=== PATIENT | male | born 1955 | race Caucasian/White ===

== ENCOUNTER 2019-02-22 00:07 | Emergency (ER) | payer OTHER ==
[2019-02-22] MEDS ORDERED: Alum Hydroxide/Mag Hydroxide 15 ML, Lidocaine 2% 15 ML PO ONE ×2 (00:41)
[2019-02-22] MEDS ORDERED: Ondansetron 8 MG Tab.DIS PO ONE (00:41)
--- NOTE | 2019-02-22 00:42 | EDM.PDOC ---
ED HPI GENERAL MEDICAL PROBLEM - General Stated Complaint: SICK Time Seen by Provider: 02/22/19 00:07 Source of Information: Reports: Patient, Family History Limitations: Reports: No Limitations - History of Present Illness INITIAL COMMENTS - FREE TEXT/NARRATIVE: 63 y.o.w.m with a H/O HTN and Hypercholesterolemia came to the ED this am due to epigastric pain all day long. He has chronic low back pain as well, no new trauma, however. No SOB, no Chest pain, no F/C no trauma. Pt mondragon a H/O GERD, which resoled after a Ravinder procedure was performed. several years ago. Pt denies Tobacco use, drinks some beer when watching foot ball, however. BP 140/ 75 RR 20 Pulse ox 96% on RA Temp 36.8 Pulse 64 Onset Date: 02/21/19 Onset Time: 08:00 Duration: Hour(s): Location: Reports: Chest Quality: Reports: Dull Severity: Moderate Improves with: Reports: None Worsens with: Reports: None Context: Reports: Other Associated Symptoms: Reports: Other (epigastric pain, chronic back pain ) - Related Data Allergies Allergy/AdvReac Type Severity Reaction Status Date / Time No Known Allergies Allergy Verified 02/22/19 01:58 Home Meds: Home Meds Lisinopril/Hydrochlorothiazide [Lisinopril-Hctz 20-12.5 mg Tab] 1.5 tab PO DAILY 02/22/19 [History] Meloxicam 15 mg PO DAILY 02/22/19 [History] Rosuvastatin [Crestor] 20 mg PO DAILY 02/22/19 [History] Sertraline [Zoloft] 100 mg PO DAILY 02/22/19 [History] amLODIPine [Norvasc] 0.5 tab PO Q48H 02/22/19 [History] amLODIPine [Norvasc] 5 mg PO Q48H 02/22/19 [History] metFORMIN [Glucophage XR] 500 mg PO DAILY 02/22/19 [History] ED ROS GENERAL - Review of Systems Review Of Systems: See Below Constitutional: Reports: No Symptoms HEENT: Reports: No Symptoms Respiratory: Reports: No Symptoms Cardiovascular: Reports: No Symptoms Endocrine: Reports: No Symptoms GI/Abdominal: Reports: Abdominal Pain (epigastric) : Reports: No Symptoms Musculoskeletal: Reports: No Symptoms Skin: Reports: No Symptoms Neurological: Reports: No Symptoms Psychiatric: Reports: No Symptoms Hematologic/Lymphatic: Reports: No Symptoms Immunologic: Reports: No Symptoms ED EXAM, GENERAL - Physical Exam Exam: See Below Exam Limited By: No Limitations General Appearance: Alert, WD/WN, Mild Distress, Obese Eye Exam: Bilateral Eye: Normal Inspection Ears: Normal External Exam Ear Exam: Bilateral Ear: Auricle Normal Nose: Normal Inspection, Normal Mucosa Throat/Mouth: Normal Lips, Normal Voice, No Airway Compromise Head: Atraumatic, Normocephalic Neck: Normal Inspection, Supple, Non-Tender, Full Range of Motion Respiratory/Chest: No Respiratory Distress, Lungs Clear, Normal Breath Sounds, Chest Non-Tender Cardiovascular: Normal Peripheral Pulses, Regular Rate, Rhythm, No Edema, No Gallop, No Murmur, No Rub Peripheral Pulses: 1+: Carotid (R) GI/Abdominal: Tender (epigastric ) (Male) Exam: Deferred Rectal (Males) Exam: Deferred Back Exam: Normal Inspection, Full Range of Motion Extremities: Normal Inspection, Normal Range of Motion Neurological: Alert, Oriented, CN II-XII Intact, Normal Cognition, Normal Gait Psychiatric: Normal Affect, Normal Mood Skin Exam: Warm, Dry, Intact, Normal Color, No Rash Lymphatic: No Adenopathy EKG INTERPRETATION EKG Date: 02/22/19 Time: 00:15 Rhythm: NSR Rate (Beats/Min): 63 [place]: Normal P-Wave: Present QRS: Normal ST-T: Normal QT: Normal Comparison: NA - No Prior EKG Course - Vital Signs Text/Narrative:: 63 y.o.w.m with a H/O HTN and Hypercholesterolemia came to the ED this am due to epigastric pain all day long. He has chronic low back pain as well, no new trauma, however. No SOB, no Chest pain, no F/C no trauma. Pt mondragon a H/O GERD, which resoled after a Ravinder procedure was performed. several years ago. Pt denies Tobacco use, drinks some beer when watching foot ball, however. BP 140/ 75 RR 20 Pulse ox 96% on RA Temp 36.8 Pulse 64 PE: WNWD W M with epigastric pain, no RUQ tenderness Labs: CBC nl, BPM: K was 3.4 BUN 20 Glc 129 Troponin: 0.017 Impression; Hypokalemia, gastritis, chronic back pain Tx: Zofran, GI cocktail Reexam: Pain subsided Plan: D/C with instructions Last Recorded V/S: Last Vital Signs Temp 36.4 C 02/22/19 00:10 Pulse 67 02/22/19 02:00 Resp 18 02/22/19 02:00 BP 117/70 02/22/19 02:00 Pulse Ox 95 02/22/19 02:00 - Orders/Labs/Meds Orders: Active Orders 24 hr Category Date Time Status EKG Documentation Completion [RC] ASDIRECTED Care 02/22/19 00:12 Active EKG 12 Lead [EK] Routine Ther 02/22/19 00:12 Ordered Labs: Laboratory Tests 02/22/19 02/22/19 02/22/19 Range/Units 00:46 00:46 00:46 WBC 7.0 (4.5-12.0) X10-3/uL RBC 4.88 (4.30-5.75) x10(6)uL Hgb 14.5 (13.5-17.8) g/dL Hct 43.3 (30.0-51.3) % MCV 88.6 (80-96) fL MCH 29.7 (27.7-33.6) pg MCHC 33.5 (32.2-35.4) g/dL RDW 12.2 (11.5-15.5) % Plt Count 230 (125-369) X10(3)uL MPV 9.2 (7.4-10.4) fL Neut % (Auto) 53.2 (46-82) % Lymph % (Auto) 32.0 (13-37) % Saline % (Auto) 9.1 (4-12) % Eos % (Auto) 5 (1.0-5.0) % Baso % (Auto) 1 (0-2) % Neut # (Auto) 3.7 (1.6-8.3) # Lymph # (Auto) 2.3 (0.6-5.0) # Saline # (Auto) 0.6 (0.0-1.3) # Eos # (Auto) 0.4 (0.0-0.8) # Baso # (Auto) 0.0 (0.0-0.2) # PT 10.0 (8.7-11.1) INR 1.03 (0.89-1.13) Sodium 139 (135-145) mmol/L Potassium 3.4 L (3.5-5.3) mmol/L Chloride 101 (100-110) mmol/L Carbon Dioxide 28 (21-32) mmol/L BUN 20 H (7-18) mg/dL Creatinine 1.1 (0.70-1.30) mg/dL Est Cr Clr Drug Dosing TNP Estimated GFR (MDRD) > 60 (>60) BUN/Creatinine Ratio 18.2 (9-20) Glucose 129 H (80-116) mg/dL Calcium 9.0 (8.6-10.2) mg/dL Total Bilirubin (0.1-1.3) mg/dL Direct Bilirubin (0.10-0.20) mg/dL AST (5-25) IU/L ALT (12-36) U/L Alkaline Phosphatase (56-112) IU/L Troponin I (<0.017-0.056) ng/mL Total Protein (6.0-8.0) g/dL Albumin (3.2-4.6) g/dL Lipase (73-393) U/L Urine Color (YELLOW) Urine Appearance (CLEAR) Urine pH (5.0-6.5) Ur Specific [place] (1.010-1.025) Urine Protein (NEGATIVE) mg/dL Urine Glucose (UA) (NORMAL) mg/dL Urine Ketones (NEGATIVE) mg/dL Urine Occult Blood (NEGATIVE) Urine Nitrite (NEGATIVE) Urine Bilirubin (NEGATIVE) Urine Urobilinogen (NEGATIVE) mg/dL Ur Leukocyte Esterase (NEGATIVE) Urine RBC (0-5) Urine WBC (0-5) Ur Squamous Epith Cells (NS,R,O) Urine Bacteria (NS) 02/22/19 02/22/19 02/22/19 Range/Units 00:46 00:46 01:50 WBC (4.5-12.0) X10-3/uL RBC (4.30-5.75) x10(6)uL Hgb (13.5-17.8) g/dL Hct (30.0-51.3) % MCV (80-96) fL MCH (27.7-33.6) pg MCHC (32.2-35.4) g/dL RDW (11.5-15.5) % Plt Count (125-369) X10(3)uL MPV (7.4-10.4) fL Neut % (Auto) (46-82) % Lymph % (Auto) (13-37) % Saline % (Auto) (4-12) % Eos % (Auto) (1.0-5.0) % Baso % (Auto) (0-2) % Neut # (Auto) (1.6-8.3) # Lymph # (Auto) (0.6-5.0) # Saline # (Auto) (0.0-1.3) # Eos # (Auto) (0.0-0.8) # Baso # (Auto) (0.0-0.2) # PT (8.7-11.1) INR (0.89-1.13) Sodium (135-145) mmol/L Potassium (3.5-5.3) mmol/L Chloride (100-110) mmol/L Carbon Dioxide (21-32) mmol/L BUN (7-18) mg/dL Creatinine (0.70-1.30) mg/dL Est Cr Clr Drug Dosing Estimated GFR (MDRD) (>60) BUN/Creatinine Ratio (9-20) Glucose (80-116) mg/dL Calcium (8.6-10.2) mg/dL Total Bilirubin 0.3 (0.1-1.3) mg/dL Direct Bilirubin 0.09 L (0.10-0.20) mg/dL AST 21 (5-25) IU/L ALT 41 H (12-36) U/L Alkaline Phosphatase 101 (56-112) IU/L Troponin I < 0.017 L (<0.017-0.056) ng/mL Total Protein 7.1 (6.0-8.0) g/dL Albumin 3.5 (3.2-4.6) g/dL Lipase 170 (73-393) U/L Urine Color Yellow (YELLOW) Urine Appearance Clear (CLEAR) Urine pH 5.0 (5.0-6.5) Ur Specific [place] 1.020 (1.010-1.025) Urine Protein Negative (NEGATIVE) mg/dL Urine Glucose (UA) Normal (NORMAL) mg/dL Urine Ketones Negative (NEGATIVE) mg/dL Urine Occult Blood Negative (NEGATIVE) Urine Nitrite Negative (NEGATIVE) Urine Bilirubin Negative (NEGATIVE) Urine Urobilinogen Normal (NEGATIVE) mg/dL Ur Leukocyte Esterase Negative (NEGATIVE) Urine RBC 0-5 (0-5) Urine WBC 0-5 (0-5) Ur Squamous Epith Cells Occasional (NS,R,O) Urine Bacteria Few H (NS) Meds: Medications Discontinued Medications Generic Name Dose Route Start Last Admin Trade Name Freq PRN Reason Stop Dose Admin Al Hydroxide/Mg Hydroxide 15 0 ml 02/22/19 00:41 02/22/19 01:18 ml/ Lidocaine HCl 15 ml PO 02/22/19 00:42 30 ml ONETIME ONE Administration Ondansetron HCl 8 mg 02/22/19 00:41 02/22/19 01:06 Zofran Odt PO 02/22/19 00:42 8 mg ONETIME ONE Administration Departure - Departure Time of Disposition: 02:21 Disposition: Home, Self-Care 01 Condition: Good Clinical Impression: Hypokalemia, Dehydration Gastritis Qualifiers: Gastritis type: other gastritis Chronicity: unspecified Gastritis bleeding: without bleeding Qualified Code(s): K29.60 - Other gastritis without bleeding Referrals: Jenny Souza, [employer] [Primary Care Provider] - Forms: ED Department Discharge Additional Instructions: Please increase water intake, Please eat 1-2 banana daily, please take Maalox for epigastric pain please f/u with your PMD, come back if your symptoms get worse acutely. - My Orders Last 24 Hours: My Active Orders 02/22/19 00:12 EKG Documentation Completion [RC] ASDIRECTED EKG 12 Lead [EK] Routine - Assessment/Plan Last 24 Hours: My Active Orders 02/22/19 00:12 EKG Documentation Completion [RC] ASDIRECTED EKG 12 Lead [EK] Routine
== END 2019-02-22 02:45 | disposition home or self-care (01) ==
LOC: FB.ED 00:07
DX: K29.60 Other gastritis without bleeding (principal); E86.0 Dehydration; E87.6 Hypokalemia; I10 Essential (primary) hypertension; Z79.899 Other long term (current) drug therapy
CPT/HCPCS: 36415; 80048; 80076; 81001; 83690; 84484; 85025; 85610; 93005; 99284; A9270

== ENCOUNTER 2020-07-07 15:00 | Emergency (ER) | payer OTHER ==
--- NOTE | 2020-07-07 15:05 | EDM.PDOC ---
ED HPI GENERAL MEDICAL PROBLEM - General Stated Complaint: CHEST PAIN Time Seen by Provider: 07/07/20 15:05 Source of Information: Reports: Patient History Limitations: Reports: No Limitations - History of Present Illness INITIAL COMMENTS - FREE TEXT/NARRATIVE: 64-year-old male with known history of coronary artery disease who lives to the emergency department with acute onset of loss his left shoulder, arm and upper back and then chest pain that began about 2:15 PM while he was walking around his garage and doing nothing strenuous. He had been feeling completely well prior to this without any chest pain or shortness of breath. There was some shortness of breath associated with this chest pain and he reports that the pain was a burning and cramping pain in his chest and shoulder and is sharp and stabbing pain in his left thoracic back. All seem to be together. It builds up over about 5 minutes and has been fairly constant since then. Pain is now a 9- 10/10. He also has some shortness of breath associated with this and he has had some nausea but no vomiting. He states that this pain is similar to the pain that he had when he had a stent placed year ago. He is currently on Brilinta and he has taken all of his medications today. He reports that he has been eating and drinking normally. He has had no cough or nasal congestion. He has had no sore throat. The pain does radiate into his neck and to his jaw as well. No diaphoresis. He presents to the emergency department via private vehicle by his . The patient has taken 2 sublingual nitroglycerin prior to arrival and there was no relief of his pain. There are no other associated signs or symptoms. There are no other modifying factors. Onset: Today (2:15 PM) Duration: Getting Worse Location: Reports: Face (Jaw), Neck (Left shoulder), Chest, Back, Upper Extremity, Left Quality: Reports: Ache, Burning, Sharp Severity: Severe Improves with: Reports: None Worsens with: Reports: None Treatments SEAMER PANTY HOSE: Reports: Nitroglycerin Midback, L lat neck radiating into head, L shoulder & arm Pain Score (Numeric/FACES): 10 - Related Data Allergies Allergy/AdvReac Type Severity Reaction Status Date / Time No Known Allergies Allergy Verified 02/22/19 01:58 Home Meds: Home Meds Lisinopril/Hydrochlorothiazide [Lisinopril-Hctz 20-12.5 mg Tab] 1 tab PO DAILY 02/22/19 [History] Rosuvastatin [Crestor] 20 mg PO BEDTIME 02/22/19 [History] Sertraline [Zoloft] 150 mg PO DAILY 02/22/19 [History] amLODIPine [Norvasc] 5 mg PO DAILY 02/22/19 [History] metFORMIN [Glucophage XR] 500 mg PO BEDTIME 02/22/19 [History] Acetaminophen [Tylenol Arthritis] 1,300 mg PO BID 07/07/20 [History] Aspirin 81 mg PO DAILY 07/07/20 [History] Metoprolol Succinate [Toprol XL 50mg] 50 mg DAILY 07/07/20 [History] Ticagrelor [Brilinta] 90 mg BID 07/07/20 [History] traZODone HCl [Trazodone HCl] 50 mg PO BEDTIME 07/07/20 [History] Past Medical History Cardiovascular History: Reports: CAD, High Cholesterol, Hypertension, Stents Musculoskeletal History: Reports: Arthritis, Back Pain, Chronic Neurological History: Reports: Other (See Below) Other Neuro History: Spinal stenosis. Arthritis in spine. Bulging disc. Psychiatric History: Reports: Depression Endocrine/Metabolic History: Reports: Other (See Below) (Prediabetes on metformin) Oncologic (Cancer) History: Reports: Prostate - Past Surgical History Cardiovascular Surgical History: Reports: Coronary Artery Stent, Percutaneous Transluminal Angioplasty GI Surgical History: Reports: Colonoscopy, EGD Male Surgical History: Reports: Prostatectomy Neurological Surgical History: Reports: Lumbar Spine, Other (See Below) Other Neurological Surgeries/Procedures: Low back surgery. Injections low back. Neck fusion. Musculoskeletal Surgical History: Reports: Shoulder Surgery (Left shoulder surgery) Social & Family History - Tobacco Use Tobacco Use Status *Q: Unknown Ever Used Tobacco (Nonsmoker) - Alcohol Use Alcohol Use History: Yes Alcohol Use Frequency: Socially - Living Situation & Occupation Occupation: Disabled ED ROS GENERAL - Review of Systems Review Of Systems: See Below Constitutional: Reports: No Symptoms HEENT: Reports: No Symptoms Respiratory: Reports: Shortness of Breath. Denies: Cough, Sputum, Hemoptysis Cardiovascular: Reports: Chest Pain, Lightheadedness Endocrine: Reports: No Symptoms GI/Abdominal: Reports: Nausea. Denies: Vomiting : Reports: No Symptoms Musculoskeletal: Reports: Neck Pain, Shoulder Pain, Back Pain Skin: Reports: No Symptoms Neurological: Reports: Dizziness Hematologic/Lymphatic: Reports: Other (On Brilinta) Immunologic: Reports: No Symptoms ED EXAM, GENERAL - Physical Exam Exam: See Below Exam Limited By: No Limitations General Appearance: Alert, Moderate Distress, Obese, Other (Fluent and appropriate in his conversation.) Eye Exam: Bilateral Eye: EOMI, Normal Inspection (Sclera are anicteric) Ears: Normal External Exam, Hearing Grossly Normal Ear Exam: Bilateral Ear: Auricle Normal Nose: Normal Inspection, Normal Mucosa, No Blood Throat/Mouth: Normal Inspection, Normal Lips, Normal Oropharynx, Normal Voice, No Airway Compromise Head: Atraumatic, Normocephalic Neck: Normal Inspection, Supple, Non-Tender, Full Range of Motion Respiratory/Chest: No Respiratory Distress, Lungs Clear, Normal Breath Sounds, No Accessory Muscle Use, Chest Non-Tender Cardiovascular: Normal Peripheral Pulses, Regular Rate, Rhythm, No Murmur Peripheral Pulses: 2+: Radial (L), Radial (R), Dorsalis Pedis (L), Dorsalis Pedis (R) GI/Abdominal: Normal Bowel Sounds, Soft, Non-Tender Back Exam: Normal Inspection, Full Range of Motion Extremities: Normal Inspection, Normal Range of Motion, Non-Tender, No Pedal Edema, Normal Capillary Refill Neurological: Alert, Oriented, CN II-XII Intact, Normal Cognition, No Motor/Sensory Deficits Psychiatric: Normal Affect Skin Exam: Warm, Dry, Intact, Normal Color, No Rash #1 Interpretation EKG Date: 07/07/20 Time: 15:05 Rhythm: NSR Rate (Beats/Min): 61 [place]: LAD-Left [place] Deviation (Slight left axis) P-Wave: Present QRS: Normal ST-T: Normal QT: Normal Comparison: No Change (From an EKG performed on 02/22/2019.) #2 Interpretation EKG Date: 07/07/20 Time: 16:57 Rhythm: NSR Rate (Beats/Min): 56 [place]: LAD-Left [place] Deviation (Slight left axis) P-Wave: Present QRS: Normal ST-T: Normal QT: Normal Comparison: No Change (From EKG performed earlier today.) Course - Vital Signs Last Recorded V/S: Last Vital Signs Temp 36.4 C 07/07/20 15:00 Pulse 78 07/07/20 15:00 Resp 18 07/07/20 15:00 BP 118/74 07/07/20 16:10 Pulse Ox 98 07/07/20 15:00 - Orders/Labs/Meds Orders: Active Orders 24 hr Category Date Time Status EKG Documentation Completion [RC] ASDIRECTED Care 07/07/20 15:23 Active EKG Documentation Completion [RC] ASDIRECTED Care 07/07/20 16:38 Active Chest 1V Frontal [CR] Stat Exams 07/07/20 15:22 Taken Heparin Sodium/0.45% NaCl [Heparin 25,000 Units in 1/2 Med 07/07/20 17:26 Active NS 500 ML] 500 ml IV ASDIRECTED Sodium Chloride 0.9% [Normal Saline] 1,000 ml Med 07/07/20 15:30 Active IV ASDIRECTED Sodium Chloride 0.9% [Saline Flush] Med 07/07/20 15:22 Active 10 ml FLUSH ASDIRECTED PRN Peripheral IV Insertion Adult [OM.PC] Routine Oth 07/07/20 15:22 Ordered EKG 12 Lead [EK] Routine Ther 07/07/20 15:22 Ordered EKG 12 Lead [EK] Routine Ther 07/07/20 16:38 Ordered Medication Orders Sodium Chloride (Normal Saline) 1,000 mls @ 100 mls/hr IV ASDIRECTED [facility] Last Admin: 07/07/20 15:27 Dose: 100 mls/hr Documented by: EFRAIN Heparin Sodium/Sodium Chloride (Heparin 25,000 Units In 1/2 Ns 500 Ml) 500 mls @ 20 mls/hr IV ASDIRECTED [facility] Last Admin: 07/07/20 17:48 Dose: 6 units/hr, 0.12 mls/hr Documented by: EFRAIN Cosigned by: DAIANA Sodium Chloride (Saline Flush) 10 ml FLUSH ASDIRECTED PRN PRN Reason: Keep Vein Open Last Admin: 07/07/20 15:15 Dose: 10 ml Documented by: EFRAIN Labs: Laboratory Tests 07/07/20 07/07/20 07/07/20 Range/Units 15:30 15:30 15:30 WBC 8.1 (3.2-10.1) x10-3/uL RBC 4.62 (3.90-5.90) x10(6)uL Hgb 13.5 (12.9-17.7) g/dL Hct 42.0 (38.3-50.1) % MCV 90.9 (80.8-98.7) fL MCH 29.2 (27.0-33.3) pg MCHC 32.2 (28.7-35.3) g/dL RDW 13.2 (12.4-15.0) % Plt Count 217 (117-477) x10(3)uL MPV 9.3 (6.7-11.0) fL Neut % (Auto) 53.8 (40.3-71.8) % Lymph % (Auto) 33.1 (15.8-45.3) % [place] % (Auto) 8.4 (5.5-15.2) % Eos % (Auto) 4.2 (0.1-6.8) % Baso % (Auto) 0.5 (0.3-3.8) % Neut # (Auto) 4.4 (1.7-6.9) x10-3/uL Lymph # (Auto) 2.7 (0.5-4.5) x10-3/uL [place] # (Auto) 0.7 (0.0-1.2) x10-3/uL Eos # (Auto) 0.3 (0.0-0.6) x10-3/uL Baso # (Auto) 0.0 (0.0-0.3) x10-3/uL PT (9.0-11.1) sec INR (1.00-1.24) APTT (24.4-33.2) SECONDS D-Dimer, Quantitative (0.0-0.59) mg/LFEU Sodium 138 (135-145) mmol/L Potassium 3.4 L (3.5-5.3) mmol/L Chloride 99 L (100-110) mmol/L Carbon Dioxide 25 (21-32) mmol/L BUN 25 H (7-18) mg/dL Creatinine 1.1 (0.70-1.30) mg/dL Est Cr Clr Drug Dosing TNP Estimated GFR (MDRD) > 60 (>60) BUN/Creatinine Ratio 22.7 H (9-20) Glucose 109 (80-116) mg/dL Calcium 9.1 (8.6-10.2) mg/dL Magnesium 2.0 (1.8-2.5) mg/dL Total Bilirubin 0.3 (0.1-1.3) mg/dL AST 27 H D (5-25) IU/L ALT 56 H D (12-36) U/L Alkaline Phosphatase 99 (56-112) IU/L Troponin I 33.6 (4.0-60.3) pg/mL NT-Pro-B Natriuret Pep (<=125) pg/mL Total Protein 7.3 (6.0-8.0) g/dL Albumin 3.9 (3.2-4.6) g/dL Globulin 3.4 g/dL Albumin/Globulin Ratio 1.2 SARS-CoV-2 RNA (JESSY) (NEGATIVE) 07/07/20 07/07/20 07/07/20 Range/Units 15:30 15:30 15:30 WBC (3.2-10.1) x10-3/uL RBC (3.90-5.90) x10(6)uL Hgb (12.9-17.7) g/dL Hct (38.3-50.1) % MCV (80.8-98.7) fL MCH (27.0-33.3) pg MCHC (28.7-35.3) g/dL RDW (12.4-15.0) % Plt Count (117-477) x10(3)uL MPV (6.7-11.0) fL Neut % (Auto) (40.3-71.8) % Lymph % (Auto) (15.8-45.3) % [place] % (Auto) (5.5-15.2) % Eos % (Auto) (0.1-6.8) % Baso % (Auto) (0.3-3.8) % Neut # (Auto) (1.7-6.9) x10-3/uL Lymph # (Auto) (0.5-4.5) x10-3/uL [place] # (Auto) (0.0-1.2) x10-3/uL Eos # (Auto) (0.0-0.6) x10-3/uL Baso # (Auto) (0.0-0.3) x10-3/uL PT 10.5 (9.0-11.1) sec INR 0.97 L (1.00-1.24) APTT 24.8 (24.4-33.2) SECONDS D-Dimer, Quantitative 0.28 (0.0-0.59) mg/LFEU Sodium (135-145) mmol/L Potassium (3.5-5.3) mmol/L Chloride (100-110) mmol/L Carbon Dioxide (21-32) mmol/L BUN (7-18) mg/dL Creatinine (0.70-1.30) mg/dL Est Cr Clr Drug Dosing Estimated GFR (MDRD) (>60) BUN/Creatinine Ratio (9-20) Glucose (80-116) mg/dL Calcium (8.6-10.2) mg/dL Magnesium (1.8-2.5) mg/dL Total Bilirubin (0.1-1.3) mg/dL AST (5-25) IU/L ALT (12-36) U/L Alkaline Phosphatase (56-112) IU/L Troponin I (4.0-60.3) pg/mL NT-Pro-B Natriuret Pep 21 (<=125) pg/mL Total Protein (6.0-8.0) g/dL Albumin (3.2-4.6) g/dL Globulin g/dL Albumin/Globulin Ratio SARS-CoV-2 RNA (JESSY) (NEGATIVE) 07/07/20 Range/Units 17:20 WBC (3.2-10.1) x10-3/uL RBC (3.90-5.90) x10(6)uL Hgb (12.9-17.7) g/dL Hct (38.3-50.1) % MCV (80.8-98.7) fL MCH (27.0-33.3) pg MCHC (28.7-35.3) g/dL RDW (12.4-15.0) % Plt Count (117-477) x10(3)uL MPV (6.7-11.0) fL Neut % (Auto) (40.3-71.8) % Lymph % (Auto) (15.8-45.3) % [place] % (Auto) (5.5-15.2) % Eos % (Auto) (0.1-6.8) % Baso % (Auto) (0.3-3.8) % Neut # (Auto) (1.7-6.9) x10-3/uL Lymph # (Auto) (0.5-4.5) x10-3/uL [place] # (Auto) (0.0-1.2) x10-3/uL Eos # (Auto) (0.0-0.6) x10-3/uL Baso # (Auto) (0.0-0.3) x10-3/uL PT (9.0-11.1) sec INR (1.00-1.24) APTT (24.4-33.2) SECONDS D-Dimer, Quantitative (0.0-0.59) mg/LFEU Sodium (135-145) mmol/L Potassium (3.5-5.3) mmol/L Chloride (100-110) mmol/L Carbon Dioxide (21-32) mmol/L BUN (7-18) mg/dL Creatinine (0.70-1.30) mg/dL Est Cr Clr Drug Dosing Estimated GFR (MDRD) (>60) BUN/Creatinine Ratio (9-20) Glucose (80-116) mg/dL Calcium (8.6-10.2) mg/dL Magnesium (1.8-2.5) mg/dL Total Bilirubin (0.1-1.3) mg/dL AST (5-25) IU/L ALT (12-36) U/L Alkaline Phosphatase (56-112) IU/L Troponin I (4.0-60.3) pg/mL NT-Pro-B Natriuret Pep (<=125) pg/mL Total Protein (6.0-8.0) g/dL Albumin (3.2-4.6) g/dL Globulin g/dL Albumin/Globulin Ratio SARS-CoV-2 RNA (JESSY) Negative (NEGATIVE) Meds: Medications Generic Name Dose Route Start Last Admin Trade Name Freq PRN Reason Stop Dose Admin Sodium Chloride 1,000 mls @ 100 mls/hr 07/07/20 15:30 07/07/20 15:27 Normal Saline IV 100 mls/hr ASDIRECTED REYNOLD Administration Heparin Sodium/Sodium Chloride 500 mls @ 20 mls/hr 07/07/20 17:26 07/07/20 17:48 Heparin 25,000 Units In /2 Ns 500 Ml IV 6 units/hr ASDIRECTED REYNOLD 0.12 mls/hr Administration 1,000 UNITS/HR Sodium Chloride 10 ml 07/07/20 15:22 07/07/20 15:15 Saline Flush FLUSH 10 ml ASDIRECTED PRN Administration Keep Vein Open Discontinued Medications Generic Name Dose Route Start Last Admin Trade Name Alondra PRN Reason Stop Dose Admin Aspirin 243 mg 07/07/20 15:23 07/07/20 15:27 Aspirin PO 07/07/20 15:24 243 mg ONETIME ONE Administration Heparin Sodium (Porcine) 4,000 units 07/07/20 17:24 07/07/20 17:48 Heparin Sodium IVPUSH 07/07/20 17:25 4,000 units .BOLUS ONE Administration Morphine Sulfate 4 mg 07/07/20 15:23 07/07/20 15:50 Morphine IVPUSH 07/07/20 15:24 4 mg ONETIME ONE Administration Morphine Sulfate 4 mg 07/07/20 16:39 07/07/20 17:50 Morphine IVPUSH 07/07/20 16:40 4 mg ONETIME ONE Administration Nitroglycerin 0.4 mg 07/07/20 15:23 07/07/20 16:10 Nitrostat SL 0.4 mg Q5M PRN Administration Chest Pain Ondansetron HCl 4 mg 07/07/20 15:23 07/07/20 15:39 Zofran IVPUSH 07/07/20 15:24 4 mg ONETIME ONE Administration - Radiology Interpretation Free Text/Narrative:: Portable chest x-ray shows no acute disease. - Re-Assessments/Exams Free Text/Narrative Re-Assessment/Exam: 07/07/20 16:15: Patient's pain is down to a 2/10. He has just been given the third sublingual nitroglycerin. His blood tests thus far are reassuringly normal. Specifically his hemoglobin is normal. His EKG shows no current of injury or ischemia and is unchanged from an EKG in the past. His troponin is normal. His electrolytes are normal. I have ordered a d-dimer and that is pending at this point. 07/07/20 17:00: His pain is down to a 0.5-1/10. He feels much improved. His d- dimer was normal. His chest x-ray showed no acute disease. I did have the nursing staff repeat his EKG and the EKG showed no STEMI pattern and was unchanged from the previous EKG. Given the patient's past history and known coronary artery disease, he will need admission for cardiac monitoring and serial cardiac enzymes and they're are no beds/staff available at [facility] for admission here. The patient is usually followed through the [facility] system. Therefore, he would want me to call and discuss this case with the doctors at [facility] in [place]. 07/07/20 17:25: I have discussed the patient's case with Dr. Michaud, intake physician at [facility] in [place], he has agreed to accept the patient in transfer. I will heparinize the patient via ACS guidelines. We will continue to monitor the patient. The patient will need ALS ambulance transport to [facility] for direct admission. The patient and his are in agreement with the plans for transfer. Departure - Departure Time of Disposition: 18:25 Disposition: DC/Tfer to [facility] 02 Reason for Transfer *Q: Other (No beds/staff available for admission at [facility].) Condition: Fair (Guarded.) Clinical Impression: Acute coronary syndrome Chest pain Qualifiers: Chest pain type: unspecified Qualified Code(s): R07.9 - Chest pain, unspecified Referrals: Jenny Souza, [employer] [Primary Care Provider] - Sepsis Event Note (ED) - Focused Exam Vital Signs: Vital Signs Temp Pulse Resp BP BP Pulse Ox 07/07/20 16:10 118/74 07/07/20 15:40 136/67 07/07/20 15:28 118/78 07/07/20 15:00 36.4 C 78 18 129/80 98 - My Orders Last 24 Hours: My Active Orders 07/07/20 15:22 Chest 1V Frontal [CR] Stat Sodium Chloride 0.9% [Saline Flush] 10 ml FLUSH ASDIRECTED PRN Peripheral IV Insertion Adult [OM.PC] Routine EKG 12 Lead [EK] Routine 07/07/20 15:23 EKG Documentation Completion [RC] ASDIRECTED 07/07/20 15:30 Sodium Chloride 0.9% [Normal Saline] 1,000 ml IV ASDIRECTED 07/07/20 16:38 EKG Documentation Completion [RC] ASDIRECTED EKG 12 Lead [EK] Routine 07/07/20 17:26 Heparin Sodium/0.45% NaCl [Heparin 25,000 Units in 1/2 NS 500 ML] 500 ml IV ASDIRECTED - Assessment/Plan Last 24 Hours: My Active Orders 07/07/20 15:22 Chest 1V Frontal [CR] Stat Sodium Chloride 0.9% [Saline Flush] 10 ml FLUSH ASDIRECTED PRN Peripheral IV Insertion Adult [OM.PC] Routine EKG 12 Lead [EK] Routine 07/07/20 15:23 EKG Documentation Completion [RC] ASDIRECTED 07/07/20 15:30 Sodium Chloride 0.9% [Normal Saline] 1,000 ml IV ASDIRECTED 07/07/20 16:38 EKG Documentation Completion [RC] ASDIRECTED EKG 12 Lead [EK] Routine 07/07/20 17:26 Heparin Sodium/0.45% NaCl [Heparin 25,000 Units in 1/2 NS 500 ML] 500 ml IV ASDIRECTED
[2020-07-07] MEDS ORDERED: Sodium Chloride 0.9% 10 ML Syringe FLUSH PRN (15:22)
[2020-07-07] MEDS ORDERED: Morphine 4 MG/ML VIAL IVPUSH ONE ×2 (15:23→16:39)
[2020-07-07] MEDS ORDERED: Ondansetron 4 MG/2 ML SDV IVPUSH ONE (15:23)
[2020-07-07] MEDS ORDERED: Aspirin 81 MG Tab.Chew PO ONE (15:23)
[2020-07-07] MEDS: Nitroglycerin 0.4 MG Tab.SL SL PRN ×3 (15:28→16:10)
[2020-07-07] MEDS ORDERED: Sodium Chloride 0.9% 1,000 ML IV SCH (15:30)
[2020-07-07] MEDS ORDERED: Heparin Sodium 5,000 Units/ML Vial IVPUSH ONE (17:24)
[2020-07-07] MEDS ORDERED: Heparin Sodium/0.45% NaCl 500 ML IV SCH (17:26)
--- NOTE | 2020-07-09 10:36 | CR ---
INDICATION: Chest pain. CHEST, ONE VIEW: AP upright portable view of the chest was obtained 07/07/20 and compared with 08/11/13. Evidence of surgery is again noted at the hiatus - epigastric area. Overlying EKG leads are noted. The heart is normal in size. A definite active infiltrate or effusion was not identified. Evidence of exogenous obesity is noted. IMPRESSION: No definite acute process. MTDD
== END 2020-07-07 18:25 ==
LOC: FB.ED 15:00
DX: I24.9 Acute ischemic heart disease, unspecified (principal); I25.10 Atherosclerotic heart disease of native coronary artery without angina pectoris; E78.00 Pure hypercholesterolemia, unspecified; I10 Essential (primary) hypertension; M19.90 Unspecified osteoarthritis, unspecified site; Z79.84 Long term (current) use of oral hypoglycemic drugs; Z79.899 Other long term (current) drug therapy; Z20.822 Contact with and (suspected) exposure to COVID-19; Z95.5 Presence of coronary angioplasty implant and graft; Z79.82 Long term (current) use of aspirin
CPT/HCPCS: 36415; 71045; 80053; 83735; 83880; 84484; 85025; 85379; 85610; 85730; 87635; 93005; 96365; 96375; 96376; 99285; A9270; J1644; J2270; J2405; J7030; 93010; U0002

== ENCOUNTER 2022-07-08 16:36 | Observation (INO) | payer MEDICARE, OTHER ==
[2022-07-08] MEDS ORDERED: Sodium Chloride 0.9% 500 ML IV ONE (17:04)
[2022-07-08] MEDS ORDERED: Ondansetron 4 MG/2 ML SDV IVPUSH ONE (17:04)
[2022-07-08 17:31] LABS: ESTIMATED GFR 68 mL/min (>60)
[2022-07-08] MEDS ORDERED: Potassium Chloride 20 MEQ Tab.ER PO ONE ×2 (17:47→21:08)
[2022-07-08] MEDS ORDERED: Magnesium Sulfate/Water 2 GM in Premix Bag 1 BAG IV ONE (17:48)
[2022-07-08] MEDS ORDERED: Potassium Chloride 20 MEQ Tab.ER ONE (17:54)
[2022-07-08] MEDS: Sodium Chloride 0.9% 1,000 ML IV SCH ×2 (18:05→22:03)
[2022-07-08] MEDS ORDERED: Iopamidol 755 MG/ML 125 ML Bottle IV ONE (19:46)
[2022-07-08] MEDS ORDERED: Ondansetron 4 MG/2 ML SDV IV PRN (21:03)
[2022-07-08] MEDS: Ciprofloxacin in D5W 400 MG in Premix Bag 1 BAG IV SCH ×2 (22:11)
[2022-07-08] MEDS: metroNIDAZOLE/Normal Saline 500 MG in Premix Bag 1 BAG IV SCH (23:28)
[2022-07-09 07:04] LABS: ESTIMATED GFR 84 mL/min (>60)
[2022-07-09] MEDS: Sodium Chloride 0.9% 1,000 ML IV SCH ×2 (07:11→16:39)
[2022-07-09] MEDS: Acetaminophen 325 MG Tab PO PRN ×2 (09:14→19:51)
[2022-07-09] MEDS: Ciprofloxacin in D5W 400 MG in Premix Bag 1 BAG IV SCH ×4 (09:16→21:27)
[2022-07-09] MEDS: metroNIDAZOLE/Normal Saline 500 MG in Premix Bag 1 BAG IV SCH ×2 (10:41→22:59)
[2022-07-09] MEDS: DULoxetine 30 MG Cap *PTOM PO SCH (12:29)
[2022-07-09] MEDS: Aspirin 81 MG Tab.EC *PTOM PO SCH (12:29)
[2022-07-09] MEDS: DAPAGLIFLOZIN PROPANEDIOL 5 MG PO SCH (15:27)
[2022-07-09] MEDS ORDERED: Loperamide 2 MG Cap PO ONE ×2 (16:54→16:56)
[2022-07-09] MEDS ORDERED: Loperamide 2 MG Cap PO PRN (16:56)
[2022-07-10] MEDS: Sodium Chloride 0.9% 1,000 ML IV SCH (01:43)
[2022-07-10 06:58] LABS: ESTIMATED GFR 95 mL/min (>60)
[2022-07-10] MEDS: Ciprofloxacin in D5W 400 MG in Premix Bag 1 BAG IV SCH ×2 (08:53)
[2022-07-10] MEDS: DULoxetine 30 MG Cap *PTOM PO SCH (09:08)
[2022-07-10] MEDS: Aspirin 81 MG Tab.EC *PTOM PO SCH (09:08)
[2022-07-10] MEDS: DAPAGLIFLOZIN PROPANEDIOL 5 MG PO SCH (09:59)
[2022-07-10] MEDS: metroNIDAZOLE/Normal Saline 500 MG in Premix Bag 1 BAG IV SCH (10:05)
[2022-07-11] MEDS ORDERED: metFORMIN 500 MG Tab.ER *PTOM PO SCH (18:00)
== END 2022-07-10 11:32 | disposition home or self-care (01) ==
LOC: FB.ED 16:36 → FB.MS 21:04 → UNDOADMOB 21:16
PROVIDERS: ADMIT Emergency Medicine; ATTEND Family Medicine
DX: R19.7 Diarrhea, unspecified (principal); R50.9 Fever, unspecified; E11.9 Type 2 diabetes mellitus without complications; E66.9 Obesity, unspecified; I95.89 Other hypotension; E86.1 Hypovolemia; I10 Essential (primary) hypertension; E78.00 Pure hypercholesterolemia, unspecified; I25.10 Atherosclerotic heart disease of native coronary artery without angina pectoris; G47.30 Sleep apnea, unspecified; M19.90 Unspecified osteoarthritis, unspecified site; G89.29 Other chronic pain; M54.9 Dorsalgia, unspecified; F32.A Depression, unspecified; K57.30 Diverticulosis of large intestine without perforation or abscess without bleeding; Z68.35 Body mass index [BMI] 35.0-35.9, adult; Z79.899 Other long term (current) drug therapy; Z79.84 Long term (current) use of oral hypoglycemic drugs; Z79.82 Long term (current) use of aspirin; Z98.890 Other specified postprocedural states
CPT/HCPCS: 36415; 71045; 74177; 80048; 80053; 81001; 82947; 83605; 83735; 84484; 85025; 86140; 87040; 87045; 87046; 87230; 87427; 93005; 93010; 96361; 96365; 96366; 96367; 96375; 96376; 99284; 99285; A9270; G0378; J0744; J2405; J3475; J3490; J7030; J7040; Q9967; 99222; 99239

== ENCOUNTER 2022-12-28 16:51 | Emergency (ER) | payer MEDICARE, OTHER ==
[2022-12-28 17:27] LABS: BASOPHILS PERCENT AUTO 0.5 % (0.3-3.8); MONOCYTES ABSOLUTE AUTO 0.8 x10-3/uL (0.0-1.2); NEUTROPHILS ABSOLUTE AUTO 6.1 x10-3/uL (1.7-6.9)
[2022-12-28 17:29] LABS: BLOOD UREA NITROGEN,BUN 22 mg/dL (7-18); CALCIUM 9.2 mg/dL (8.6-10.2); CARBON DIOXIDE,CO2 28 mmol/L (21-32); CHLORIDE,CL 100 mmol/L (100-110); CREATININE 1.1 mg/dL (0.70-1.30); EOSINOPHILS ABSOLUTE AUTO 0.1 x10-3/uL (0.0-0.6); EOSINOPHILS PERCENT AUTO 1.6 % (0.1-6.8); ESTIMATED GFR 75 mL/min (>60); GLUCOSE RANDOM 109 mg/dL (80-116); HEMATOCRIT 42.4 % (38.3-50.1); HEMOGLOBIN 14.5 g/dL (12.9-17.7); LYMPHOCYTES ABSOLUTE AUTO 2.1 x10-3/uL (0.5-4.5); LYMPHOCYTES PERCENT AUTO 23.2 % (15.8-45.3); MEAN CORPUSCULAR HEMOGLOBIN 30.6 pg (27.0-33.3); MEAN CORPUSCULAR HGB CONC 34.2 g/dL (28.7-35.3); MEAN CORPUSCULAR VOLUME 89.6 fL (80.8-98.7); MEAN PLATELET VOLUME 8.9 fL (6.7-11.0); MONOCYTES PERCENT AUTO 8.3 % (5.5-15.2); NEUTROPHILS PERCENT AUTO 66.4 % (40.3-71.8); PLATELET COUNT,PLT 192 x10(3)uL (117-477); RED BLOOD CELL COUNT 4.74 x10(6)uL (3.90-5.90); RED CELL DISTRIBUTION WIDTH 13.2 % (12.4-15.0); SODIUM,NA 139 mmol/L (135-145); WHITE BLOOD CELL COUNT,WBC 9.1 x10-3/uL (3.2-10.1)
[2022-12-28 17:36] LABS: INR 0.96 (1.00-1.24); PROTHROMBIN TIME 9.9 sec (9.0-11.1)
[2022-12-28] MEDS: Aluminum Hydroxide/Magnesium Hydroxide Susp 30 ML Cup PO STA (17:38)
[2022-12-28] MEDS: Lidocaine 2% HCl 6 ML Jel MM STA (17:38)
[2022-12-28 17:40] LABS: ALANINE AMINOTRANSFERASE,ALT 56 U/L (12-36); ALBUMIN 3.7 g/dL (3.2-4.6); ALKALINE PHOSPHATASE 90 IU/L (56-112); ASPARTATE AMNIOTRANSFERASE,AST 33 IU/L (5-25); BILIRUBIN TOTAL 0.6 mg/dL (0.1-1.3); PROTEIN TOTAL,TP 7.3 g/dL (6.0-8.0); PTT,PARTIAL THROMBOPLSTIN TIME 24.5 SECONDS (24.4-33.2)
[2022-12-28 17:42] LABS: TROPONIN I 33.2 pg/mL (4.0-60.3)
[2022-12-28] MEDS: Ketorolac 30 MG/ML SDV IVPUSH ONE (18:18)
== END 2022-12-28 20:00 | disposition home or self-care (01) ==
LOC: FB.ED 16:51
DX: I25.10 Atherosclerotic heart disease of native coronary artery without angina pectoris (principal); K21.9 Gastro-esophageal reflux disease without esophagitis; I25.2 Old myocardial infarction; I10 Essential (primary) hypertension; Z88.8 Allergy status to other drugs, medicaments and biological substances; Z79.82 Long term (current) use of aspirin
CPT/HCPCS: 36415; 71045; 80053; 83880; 84484; 85025; 85610; 85730; 93005; 93010; 96374; 99283; 99285-25; A9270-GY; J1885

== ENCOUNTER 2025-02-15 09:04 | Emergency (ER) | payer MEDICARE, OTHER ==
[2025-02-15] MEDS ORDERED: Sodium Chloride 0.9% 10 ML Syringe FLUSH PRN (09:11)
[2025-02-15 09:38] LABS: MEAN PLATELET VOLUME 8.4 fL (6.7-11.0); PLATELET COUNT,PLT 261 x10(3)uL (117-477); RED BLOOD CELL COUNT 4.20 x10(6)uL (3.90-5.90); RED CELL DISTRIBUTION WIDTH 12.7 % (12.4-15.0); WHITE BLOOD CELL COUNT,WBC 20.0 x10-3/uL (3.2-10.1)
[2025-02-15 09:44] LABS: A/G RATIO 1.0; ALANINE AMINOTRANSFERASE,ALT 45 U/L (12-36); ASPARTATE AMNIOTRANSFERASE,AST 37 IU/L (5-25); BILIRUBIN TOTAL 0.6 mg/dL (0.1-1.3); BLOOD UREA NITROGEN,BUN 20 mg/dL (7-18); CARBON DIOXIDE,CO2 32 mmol/L (21-32); CHLORIDE,CL 91 mmol/L (100-110); CREATININE 1.4 mg/dL (0.70-1.30); ESTIMATED GFR 55 mL/min (>60); GLUCOSE RANDOM 203 mg/dL (80-116); INR 1.0 (1.00-1.24); PROTEIN TOTAL,TP 5.8 g/dL (6.0-8.0); SODIUM,NA 128 mmol/L (135-145)
[2025-02-15 09:46] LABS: PTT,PARTIAL THROMBOPLSTIN TIME 22.7 SECONDS (24.4-33.2)
[2025-02-15 09:48] LABS: POTASSIUM,K 2.8 mmol/L (3.5-5.3)
[2025-02-15 09:54] LABS: EOSINOPHILS PERCENT MAN 1 % (0-5); LYMPHOCYTES PERCENT MAN 12 % (13-37); MONOCYTES PERCENT MAN 5 % (4-12); SEG NEUTROPHILS PERCENT MAN 82 % (46-82)
[2025-02-15] MEDS ORDERED: Iopamidol 755 Mg/ML 75 ML Bottle IV ONE (10:14)
[2025-02-15 10:16] LABS: GLUCOSE,URINE >1000 mg/dL (NORMAL); OCCULT BLOOD,URINE MODERATE (NEGATIVE)
[2025-02-15 10:17] LABS: APPEARANCE,URINE SLIGHTLY CLOUDY (CLEAR)
[2025-02-15 10:22] LABS: LACTIC ACID 3.2 mmol/L (0.4-2.0)
[2025-02-15 10:33] LABS: SQUAMOUS EPITHELIAL CELLS,UR FEW (NS,R,O)
[2025-02-15] MEDS: Iopamidol 755 Mg/ML 100 ML Bottle IV SCH (10:34)
== END 2025-02-15 10:50 ==
LOC: FB.ED 09:04
DX: I63.9 Cerebral infarction, unspecified (principal); E78.5 Hyperlipidemia, unspecified; I10 Essential (primary) hypertension; I25.2 Old myocardial infarction; I25.10 Atherosclerotic heart disease of native coronary artery without angina pectoris; E11.9 Type 2 diabetes mellitus without complications; E78.00 Pure hypercholesterolemia, unspecified; M19.90 Unspecified osteoarthritis, unspecified site; Z85.46 Personal history of malignant neoplasm of prostate; Z79.899 Other long term (current) drug therapy; Z79.82 Long term (current) use of aspirin; Z88.8 Allergy status to other drugs, medicaments and biological substances; W01.198A Fall on same level from slipping, tripping and stumbling with subsequent striking against other object, initial encounter
CPT/HCPCS: 36415; 37195; 51702; 70450; 70450-26; 70496; 70496-26; 70498; 70498-26; 71045; 71045-26; 80053; 81001; 82947; 83605; 84484; 85025; 85610; 85730; 96360; 99285-25; J3101; J7030; Q9967